=== PATIENT | male | born 1980 | race Caucasian/White ===

== ENCOUNTER 2016-12-26 00:18 | Inpatient (IN) ==
[2016-12-26 00:52] LABS: MANUAL DIFF NEEDED? NO
[2016-12-26 00:55] LABS: BASO% 0.3 % (0.0-0.8); EOS# 0.05 X1000 (0.0-0.7); EOS% 0.4 % (0.0-10.0); HEMATOCRIT 39.9 % (42.0-52.0); HEMOGLOBIN 14.5 g/dL (14.0-18.0); IMM GRAN# 0.02 X1000 (0.0-0.04); IMM GRAN% 0.2 % (0.0-0.5); LYMPH# 1.39 X1000 (1.2-3.4); LYMPH% 12.1 % (20.5-51.1); MCH 33.6 PG (27-31); MCHC 36.3 g/dL (33-37); MCV 92.4 FL (81-99); MONO# 1.15 X1000 (0.11-0.59); MPV 10.6 FL (7.4-10.4); PLT 138 X1000 (130-400); RBC 4.32 XMIL (4.7-6.1)
[2016-12-26 01:04] LABS: ALBUMIN 4.4 g/dL (3.5-5.0); CALCIUM 8.8 mg/dL (8.8-10.2); POTASSIUM 3.5 mmol/L (3.5-5.1); TOTAL BILIRUBIN 1.9 mg/dL (0.20-1.00); TOTAL PROTEIN 7.9 g/dL (6.3-8.3)
[2016-12-26 01:22] LABS: FREE T4 1.49 ng/dL (0.93-1.70)
[2016-12-26 02:24] LABS: URINE MICRO REVIEW NEEDED? NO; URINE SOURCE CLEAN CATCH
[2016-12-26 02:29] LABS: UR EPITHELIAL CELLS <10 /HPF (<10); URINE BACTERIA NEGATIVE /HPF; URINE RBC TNTC /HPF (<10)
[2016-12-26 02:37] LABS: UR AMPHETAMINES QUAL PRESUMPTIVE POSITIVE (NONE DETECT); UR BARBITUATES QUAL NONE DETECTED (NONE DETECT); UR BENZODIAZEPIN QUAL NONE DETECTED (NONE DETECT); UR CANNABINOIDS QUAL NONE DETECTED (NONE DETECT); UR COCAINE QUAL NONE DETECTED (NONE DETECT); UR METHADONE QUAL NONE DETECTED (NONE DETECT); UR OPIATES QUAL NONE DETECTED (NONE DETECT); UR OXYCODONE QUAL NONE DETECTED (NONE DETECT); UR PCP QUAL NONE DETECTED (NONE DETECT)
[2016-12-26 02:40] LABS: BILIRUBIN URINE NEGATIVE (NEGATIVE); BLOOD URINE LARGE (NEGATIVE); COLOR ORANGE; GLUCOSE URINE NEGATIVE (NEGATIVE); LEUKOCYTES URINE TRACE (NEGATIVE); NITRITE URINE NEGATIVE (NEGATIVE); PROTEIN URINE 100 mg/dL (NEGATIVE); SP GRAVITY URINE 1.023; TURBIDITY URINE TURBID (CLEAR); URINE CULTURE NEEDED? YES; UROBILINOGEN URINE NORMAL (NORMAL)
[2016-12-26] MEDS ORDERED: NS 500 ML IV ONE (03:49)
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
[2016-12-26 05:11] LABS: CK INDEX 0.5 (0.0-2.5); CK-MB 27.13 ng/mL (0.0-5.0)
[2016-12-26] MEDS ORDERED: NS 1,000 ML IV SCH ×2 (05:15→17:44)
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
[2016-12-26] MEDS ORDERED: TYLENOL PO PRN (06:46)
[2016-12-26] MEDS ORDERED: ZOFRAN IV PRN (06:46)
[2016-12-26] MEDS: ATIVAN IV PRN ×3 (06:56→12:29)
[2016-12-26] MEDS: LOVENOX SUBQ SCH (08:58)
[2016-12-26] MEDS ORDERED: NS 500 ML ONE (09:00)
[2016-12-26] MEDS: NS 1,000 ML IV SCH ×3 (11:40→16:27)
[2016-12-27] MEDS: ATIVAN IV PRN (02:44)
[2016-12-27] MEDS ORDERED: NICODERM PATCH TD SCH ×2 (03:00→09:00)
[2016-12-27] MEDS: LOVENOX SUBQ SCH (06:01)
[2016-12-27 07:12] LABS: MANUAL DIFF NEEDED? NO
[2016-12-27 07:53] LABS: AGAP 11; ALBUMIN 3.2 g/dL (3.5-5.0); ALKALINE PHOSPHATASE 49 U/L (32-122); BUN 14 mg/dL (8-22); CALCIUM 8.5 mg/dL (8.8-10.2); CHLORIDE 104 mmol/L (98-107); COSMO 277; GOT 84 U/L (10-34); GPT 52 U/L (10-44); POTASSIUM 3.7 mmol/L (3.5-5.1); SODIUM 139 mmol/L (136-145); TCO2 24 mmol/L (25-35); TOTAL BILIRUBIN 0.83 mg/dL (0.20-1.00)
[2016-12-27 08:30] VITALS: BP 142/77
[2016-12-27 08:35] LABS: BASO% 0.6 % (0.0-0.8); EOS# 0.16 X1000 (0.0-0.7); EOS% 4.5 % (0.0-10.0); HEMOGLOBIN 13.4 g/dL (14.0-18.0); LYMPH# 1.21 X1000 (1.2-3.4); LYMPH% 34.3 % (20.5-51.1); MCH 32.8 PG (27-31); MCHC 34.4 g/dL (33-37); MCV 95.6 FL (81-99); MONO# 0.31 X1000 (0.11-0.59); MONO% 8.8 % (1.7-9.3); MPV 10.4 FL (7.4-10.4); NEUT% 51.8 % (42.2-75.2); PLT 99 X1000 (130-400); RBC 4.08 XMIL (4.7-6.1)
[2016-12-27] MEDS ORDERED: NEUTRA-PHOS PO ONE (09:55)
[2016-12-27] MEDS ORDERED: TORADOL IV ONE (11:24)
--- NOTE | 2016-12-27 11:48 | Diag Imaging Result Doc PS360 ---
EXAM: SHOULDER-LEFT HISTORY: fall TECHNIQUE: Two views COMPARISON: None. FINDINGS: No fracture. No dislocation. No separation at the acromioclavicular joint. IMPRESSION: No acute bony injury. Electronically signed by Kenan Bolden 12/27/2016 11:46 AM
--- NOTE | 2016-12-27 11:48 | Diag Imaging Result Doc PS360 ---
EXAM: SHOULDER-RIGHT HISTORY: fall TECHNIQUE: Two views COMPARISON: None. FINDINGS: No fracture. No dislocation. No separation at the acromioclavicular joint. IMPRESSION: No acute bony injury. Electronically signed by Kenan Bolden 12/27/2016 11:46 AM
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
== END 2016-12-27 16:59 | disposition home or self-care (01) ==
LOC: ED 00:18 → ICU 06:13 → SUATTDRO 06:13
PROVIDERS: ATTEND Internal Medicine